=== PATIENT | male | born 1990 | race Caucasian/White ===

== ENCOUNTER 2024-12-27 07:56 | Emergency (ER) | payer MEDICAID ==
[~2024-12-27] VITALS: Ht 182.9 cm; Wt 87.1 kg
[2024-12-27] MEDS ORDERED: BACTRIM DS TAB1 EACH PO (08:08)
[2024-12-27] MEDS ORDERED: CEPHALEXIN500 M1 PO (08:08)
[2024-12-27 08:19] VITALS: BP 108/97
== END 2024-12-27 08:19 | disposition home or self-care (01) ==
LOC: ED 07:56
DX: L03.113 Cellulitis of right upper limb (principal); S60.511A Abrasion of right hand, initial encounter; X58.XXXA Exposure to other specified factors, initial encounter
CPT/HCPCS: 99283